=== PATIENT | male | born 2000 | race Caucasian/White ===

== ENCOUNTER 2020-12-08 18:13 | Emergency (ER) | payer BC, SELFPAY ==
--- NOTE | ~2020-12-08 | XR_ITS ---
EXAMINATION: XR lumbar spine 2-3V DATE: 12/08/2020 19:20 INDICATION: 6 days of low back pain TECHNIQUE: Anteroposterior and lateral views of the lumbar spine, and cone-down lateral view of the l umbosacral junction were obtained. COMPARISON: None. FINDINGS: 5 degrees lumbar levocurvature. Sagittal alignment is normal. Vertebral body and disc heights are nor mal. Lumbar facet joints and bilateral sacroiliac joints are normal. IMPRESSION: 1. Minimal lumbar levocurvature. Otherwise normal lumbar spine radiographs. Reviewed, dictated and finalized at location A.
[2020-12-08 18:23] VITALS: BP 125/64; PULSE 82; RESP 14; TEMP 37.1; O2SAT 100
--- NOTE | 2020-12-08 19:20 | ED.GENADULT ---
HPI - General Adult General Chief complaint: Back Pain/Injury Stated complaint: back pain Source: patient Mode of arrival: ambulatory Limitations: no limitations History of Present Illness HPI narrative: Patient presents for evaluation of low back pain for the last 6 days. He cannot identify any precipitating injury. Pain gradually started. He states his pain is currently 10/10, sharp, with radiation to the right buttock and posterior right thigh. Movement makes the pain worse. He tried ibuprofen, ice pack, heating pad, icy hot without significant improvement in his symptoms or after. He denies urinary symptoms. No saddle anesthesia. No bladder/bowel incontinence. He is requesting time off of work because he does perform lifting as part of his work responsibilities. Related Data Allergies Allergy/AdvReac Type Severity Reaction Status Date / Time amoxicillin Allergy Rash Verified 12/08/20 18:42 Review of Systems Review of Systems: CONSTITUTIONAL: Denies fever, chills, or sweats. EYES: Denies visual changes, redness, or discharge. ENT: Denies rhinorrhea, congestion, sore throat, or otalgia. CARDIOVASCULAR: Denies chest pain, palpitations, or edema. RESPIRATORY: Denies cough or dyspnea. GASTROINTESTINAL: Denies abdominal pain, nausea, vomiting, or diarrhea. GENITOURINARY: Denies dysuria or hematuria. SKIN: Denies rash or itching. MUSCULOSKELETAL: Reports low back pain. Denies joint pain, or myalgia. NEUROLOGIC: Denies headache, numbness, dizziness, or weakness. PSYCHIATRIC: Denies anxiety or depression. [facility] Past Medical History Medical History (Updated 12/08/20 @ 19:37 by GINO Fortune, ) No pertinent past medical history Surgical History Surgical History No pertinent past surgical history Family History Family History Mother No pertinent past medical history Social History Social History Smoking status: Current every day smoker Tobacco type: e-cigarettes/vaping Substance use: never Gender identity (if verbalized by the patient): Male Sexual Orientation (if Verbalized by the Patient): Straight or Heterosexual Spiritual care concerns: No Exam Narrative: GENERAL: Well-appearing, well-nourished, and in no acute distress. HEAD: Normocephalic, atraumatic. EYES: PERRLA and EOMI. ENT: Nares clear, no rhinorrhea or epistaxis. Mucous membranes moist. Oropharynx without tonsillar hypertrophy exudate or other lesions. Bilateral TMs pearly aguila nonbulging NECK: Supple. No adenopathy or masses. No carotid bruits or JVD CHEST: Clear to auscultation. No respiratory distress. No wheezes rales or rhonchi HEART: Regular rate and rhythm. No murmur heard. Normal peripheral pulses. BACK: Tenderness noted midline paraspinous muscles of the lumbar spine bilaterally. Positive straight leg raise on the right ABDOMEN: Soft, nontender, nondistended, normal active bowel sounds. EXTREMITIES: Normal range of motion. No edema. SKIN: Warm, dry, no rash. NEURO: No focal deficits. Alert and oriented x3. PSYCH: Normal mood and affect. Course Course Emergency Course: This is a 20-year-old male who presents with low back pain. X ray shows minimal lumbar levocurvature. Ibuprofen ordered while he was here. Will discharge with Medrol Dosepak and Flexeril. He should follow-up outpatient for further evaluation and treatment return for worsening symptoms. Patient agreed with plan of care. Vital Signs Vital signs: Vital Signs Temperature 37.1 C 12/08/20 18:23 Pulse Rate 82 12/08/20 18:23 Respiratory Rate 14 12/08/20 18:23 Blood Pressure 125/64 12/08/20 18:23 Pulse Oximetry 100 12/08/20 18:23 Temperature 37.1 C 12/08/20 18:23 Pulse Rate 82 12/08/20 18:23 Respiratory Rate 14 12/08/20 18:23 Blood Pressure
== END 2020-12-08 19:46 | disposition home or self-care (01) ==
PROVIDERS: Emergency Provider Nurse Practitioner
DX: M54.16 Radiculopathy, lumbar region (principal); F17.200 Nicotine dependence, unspecified, uncomplicated
CPT/HCPCS: 72100; 99203; G0463